=== PATIENT | male | born 1930 | race Caucasian/White ===

== ENCOUNTER 2019-07-26 16:31 | Inpatient (IN) ==
[2019-07-26 17:23] LABS: Basophils % 0.2 % (0.0-0.8); Eosinophils # 0.4 10*3/uL (0.0-0.87); Eosinophils % 2.9 % (0.00-10.9); Hemoglobin 6.9 GM/DL (14.0-18.0); Immature Granulocytes % 0.9 %; Immature Granulocytes Absolute 0.13 #; Lymphocytes # 3.3 10*3/uL (1.4-4.0); Mean Corpuscular Volume 97.9 FL (87-102); Mean Platelet Volume 13.1 FL (9.6-12.0); Monocytes % 11.2 % (1.7-12.7); Neutrophils % 62.8 % (38.7-73.9); Platelet Count 156 T/CUMM (130-400); Red Blood Count 2.35 MC/CUMM (3.8-5.5); Red Cell Distribution Width 22.6 % (9.3-17.3)
[2019-07-26] MEDS ORDERED: SODIUM CHLORIDE 0.9% 1,000 ML IV PRN (17:39)
[2019-07-26 17:45] LABS: Alanine Aminotransferase 15 U/L (16-61); Albumin 3.2 G/DL (3.4-5.0); Alkaline Phosphatase 123 U/L (45-117); Aspartate Amino Transferase 24 U/L (0-37); Bilirubin,Total < 0.39 MG/DL (0.2-1.0); Blood Urea Nitrogen 39 MG/DL (7-18); Calcium 9.9 MG/DL (8.5-10.1); Estimated Glom Filtration Rate 64 ML/MIN; Glucose 105 MG/DL (74-106); Osmolality,Calculated 294.8 MOS/KG (273-304); Total Protein 7.9 G/DL (6.4-8.3)
[2019-07-26 18:46] LABS: Apearance,Urine Slightly Hazy (Clear); Bacteria,Urine Occasional /HPF (Few); Bilirubin,Urine Negative (Negative); Blood, Urine Negative (Negative); Glucose,Urine (UA) Negative (Negative); Hyaline Casts,Urine 1 /LPF (0-3); Ketones,Urine Negative (Negative); Mucus,Urine Occasional /LPF (Occasional); Nitrite,Urine Positive (Negative); Protein,Urine 30 MG/DL; RBC,Urine 23 /HPF (0-4); Squamous Epithelial Cell,Urine Occasional /HPF (0-10); Urine Color Yellow (Yellow); Urine Specific Gravity 1.017 (1.001-1.035); Urine Urobilinogen < 2.0 EU/DL (0.2-1.0); WBC,Urine 214 /HPF (0-6)
[2019-07-26] MEDS ORDERED: ONDANSETRON 4 MG/2 ML VIAL IV PRN (18:47)
[2019-07-26] MEDS: ALBUTEROL/IPRATROPIUM 3 ML NEB RESP TX SCH (19:00)
[2019-07-26] MEDS ORDERED: cefTRIAXone 1,000 MG in SYRINGE 1 EACH IV SCH (20:00)
[2019-07-27] MEDS: ALBUTEROL/IPRATROPIUM 3 ML NEB RESP TX SCH ×4 (01:30→19:08)
[2019-07-27] MEDS: AZITHROMYCIN INJ 500 MG in SODIUM CHLORIDE 0.9% 250 ML IV SCH ×2 (04:00→22:55)
[2019-07-27] MEDS: SODIUM CHLORIDE 0.9% 1,000 ML IV SCH ×2 (04:00→16:02)
[2019-07-27 05:15] LABS: Basophils % 0.3 % (0.0-0.8); Eosinophils # 0.4 10*3/uL (0.0-0.87); Eosinophils % 2.9 % (0.00-10.9); Hematocrit 26.4 VOL% (42.0-52.0); Hemoglobin 8.2 GM/DL (14.0-18.0); Immature Granulocytes % 1.2 %; Immature Granulocytes Absolute 0.17 #; Lymphocytes # 2.6 10*3/uL (1.4-4.0); Lymphocytes % 18.5 % (21.2-54.2); Mean Corpuscular HGB Conc 31.1 GM/DL (32-36); Mean Corpuscular Volume 92.3 FL (87-102); Mean Platelet Volume 13.2 FL (9.6-12.0); Monocytes % 11.3 % (1.7-12.7); Neutrophils % 65.8 % (38.7-73.9); Platelet Count 121 T/CUMM (130-400); Red Blood Count 2.86 MC/CUMM (3.8-5.5); Red Cell Distribution Width 20.4 % (9.3-17.3); White Blood Count 14.2 T/CUMM (4-12)
[2019-07-27 05:47] LABS: Vitamin B12 > 2000 PG/ML (211-911)
[2019-07-27 05:51] LABS: % Iron Saturation 16.3 % (18-50); Ferritin 83.6 ng/ml (26-388)
[2019-07-27 05:55] LABS: Albumin 2.8 G/DL (3.4-5.0); Bilirubin,Total 0.7 MG/DL (0.2-1.0); Calcium 9.5 MG/DL (8.5-10.1); Osmolality,Calculated 302.3 MOS/KG (273-304); Risk Ratio 3.52; Thyroid Stimulating Hormone 11.7 uIU/ml (0.358-3.74); VLDL CHOLESTEROL 15.8 MG/DL
[2019-07-27] MEDS: PANTOPRAZOLE 40 MG VIAL IV SCH (08:45)
[2019-07-27] MEDS: LEVOTHYROXINE 88 MCG TABLET PO SCH (14:39)
[2019-07-27] MEDS: cefTRIAXone 2,000 MG in SYRINGE 1 EACH IV SCH (14:39)
[2019-07-27] MEDS: MIDODRINE 5 MG TABLET PO SCH ×2 (14:41→21:39)
[2019-07-27 15:01] LABS: Hematocrit 29.3 VOL% (42.0-52.0); Hemoglobin 9.2 GM/DL (14.0-18.0)
[2019-07-27] MEDS ORDERED: ACETAMINOPHEN 325 MG TABLET PO ONE (16:34)
[2019-07-27] MEDS: MEMANTINE 10 MG TABLET PO SCH (21:39)
[2019-07-28] MEDS: ALBUTEROL/IPRATROPIUM 3 ML NEB RESP TX SCH ×4 (00:52→19:19)
[2019-07-28 05:04] LABS: Albumin 2.5 G/DL (3.4-5.0); Bilirubin,Total 0.4 MG/DL (0.2-1.0); Calcium 8.5 MG/DL (8.5-10.1); Osmolality,Calculated 292.8 MOS/KG (273-304); Total Protein 6.3 G/DL (6.4-8.3)
[2019-07-28] MEDS: LEVOTHYROXINE 88 MCG TABLET PO SCH (08:06)
[2019-07-28] MEDS: MEMANTINE 10 MG TABLET PO SCH ×2 (08:06→22:05)
[2019-07-28] MEDS: PANTOPRAZOLE 40 MG VIAL IV SCH (08:06)
[2019-07-28] MEDS: MIDODRINE 5 MG TABLET PO SCH ×3 (08:06→22:05)
[2019-07-28] MEDS ORDERED: INFLUENZA VIRUS VACCINE 0.5 ML SYRINGE IM ONE (10:54)
[2019-07-28] MEDS: SODIUM CHLORIDE 0.9% 1,000 ML IV SCH (13:08)
[2019-07-28] MEDS: cefTRIAXone 2,000 MG in SYRINGE 1 EACH IV SCH (13:19)
[2019-07-28] MEDS: SODIUM CHLORIDE 0.45% 1,000 ML IV SCH (14:35)
[2019-07-28] MEDS: PIPERACILLIN/TAZOBACTAM 3,375 MG in SODIUM CHLORIDE 0.9% 100 ML IV SCH ×2 (14:42→23:47)
[2019-07-28] MEDS ORDERED: SODIUM CHLORIDE 0.9% 1,000 ML IV ONE (16:36)
[2019-07-28] MEDS: VANCOMYCIN INJ 1,000 MG in SODIUM CHLORIDE 0.9% 250 ML IV SCH (18:15)
[2019-07-28] MEDS ORDERED: SODIUM CHLORIDE 0.9% 500 ML IV ONE (18:54)
[2019-07-28 19:15] LABS: Hematocrit 28.4 VOL% (42.0-52.0); Hemoglobin 8.6 GM/DL (14.0-18.0)
[2019-07-28] MEDS ORDERED: AZITHROMYCIN 250 MG TABLET PO SCH (21:00)
[2019-07-29] MEDS: ALBUTEROL/IPRATROPIUM 3 ML NEB RESP TX SCH ×4 (00:52→19:34)
[2019-07-29] MEDS ORDERED: ACETAMINOPHEN 325 MG TABLET PO PRN (00:59)
[2019-07-29] MEDS: SODIUM CHLORIDE 0.45% 1,000 ML IV SCH (04:00)
[2019-07-29 05:58] LABS: Basophils % 0.3 % (0.0-0.8); Eosinophils # 0.2 10*3/uL (0.0-0.87); Eosinophils % 1.4 % (0.00-10.9); Hematocrit 29.2 VOL% (42.0-52.0); Hemoglobin 8.8 GM/DL (14.0-18.0); Immature Granulocytes % 1.6 %; Immature Granulocytes Absolute 0.23 #; Lymphocytes % 13.7 % (21.2-54.2); Mean Corpuscular HGB Conc 30.1 GM/DL (32-36); Mean Corpuscular Volume 96.4 FL (87-102); Mean Platelet Volume 13.3 FL (9.6-12.0); Monocytes % 12.2 % (1.7-12.7); NRBC # 0.03 10*3/uL; Neutrophils % 70.8 % (38.7-73.9); Red Blood Count 3.03 MC/CUMM (3.8-5.5); White Blood Count 14.4 T/CUMM (4-12)
[2019-07-29 06:00] LABS: Platelet Count 91 T/CUMM (130-400)
[2019-07-29 06:25] LABS: Calcium 8.1 MG/DL (8.5-10.1)
[2019-07-29] MEDS: PIPERACILLIN/TAZOBACTAM 3,375 MG in SODIUM CHLORIDE 0.9% 100 ML IV SCH ×3 (06:28→22:20)
[2019-07-29] MEDS: MEMANTINE 10 MG TABLET PO SCH ×2 (08:32→20:38)
[2019-07-29] MEDS: LEVOTHYROXINE 88 MCG TABLET PO SCH (08:32)
[2019-07-29] MEDS: MIDODRINE 5 MG TABLET PO SCH ×3 (08:32→20:38)
[2019-07-29] MEDS: PANTOPRAZOLE 40 MG VIAL IV SCH (08:32)
[2019-07-29] MEDS ORDERED: SODIUM CHLORIDE 0.9% 1,000 ML IV ONE (09:18)
[2019-07-29] MEDS: SODIUM CHLOR 0.9% KCL 20 MEQ 20 MEQ/1,000 ML BAG IV SCH (12:46)
[2019-07-29] MEDS: PHENYLEPHRINE DRIP 40 MG/250 ML PREMIX IV PRN (13:59)
[2019-07-29 15:49] LABS: Apearance,Urine Slightly Hazy (Clear); Bilirubin,Urine Negative (Negative); Blood, Urine Moderate mg/dL (Negative); Glucose,Urine (UA) Negative (Negative); Ketones,Urine Negative (Negative); Mucus,Urine Occasional /LPF (Occasional); Nitrite,Urine Negative (Negative); Protein,Urine Negative; RBC,Urine 3 /HPF (0-4); Urine Color Yellow (Yellow); Urine Specific Gravity 1.006 (1.001-1.035); Urine Urobilinogen < 2.0 EU/DL (0.2-1.0); WBC,Urine 51 /HPF (0-6)
[2019-07-29] MEDS ORDERED: COSYNTROPIN 0.25 MG VIAL IV ONE (18:28)
[2019-07-29] MEDS: VANCOMYCIN INJ 1,000 MG in SODIUM CHLORIDE 0.9% 250 ML IV SCH (19:45)
[2019-07-30] MEDS: ALBUTEROL/IPRATROPIUM 3 ML NEB RESP TX SCH ×4 (01:50→19:37)
[2019-07-30] MEDS: SODIUM CHLOR 0.9% KCL 20 MEQ 20 MEQ/1,000 ML BAG IV SCH ×3 (05:08→15:10)
[2019-07-30] MEDS: PIPERACILLIN/TAZOBACTAM 3,375 MG in SODIUM CHLORIDE 0.9% 100 ML IV SCH ×3 (06:10→23:32)
[2019-07-30] MEDS ORDERED: COSYNTROPIN 0.25 MG VIAL IV ONE (08:00)
[2019-07-30] MEDS: PANTOPRAZOLE 40 MG VIAL IV SCH (08:40)
[2019-07-30] MEDS: MEMANTINE 10 MG TABLET PO SCH ×2 (08:42→21:10)
[2019-07-30] MEDS: MIDODRINE 5 MG TABLET PO SCH ×3 (08:42→21:10)
[2019-07-30] MEDS: LEVOTHYROXINE 88 MCG TABLET PO SCH (08:43)
[2019-07-30] MEDS: SODIUM CHLORIDE 0.45% 1,000 ML IV SCH ×2 (08:57→21:11)
[2019-07-30] MEDS: VANCOMYCIN INJ 1,000 MG in SODIUM CHLORIDE 0.9% 250 ML IV SCH (21:10)
[2019-07-30] MEDS ORDERED: VANCOMYCIN INJ 1,000 MG in SODIUM CHLORIDE 0.9% 250 ML IV SCH (22:00)
[2019-07-31] MEDS: PHENYLEPHRINE DRIP 40 MG/250 ML PREMIX IV PRN
[2019-07-31] MEDS: SODIUM CHLOR 0.9% KCL 20 MEQ 20 MEQ/1,000 ML BAG IV SCH ×6 (01:00→18:31)
[2019-07-31] MEDS: ALBUTEROL/IPRATROPIUM 3 ML NEB RESP TX SCH ×4 (01:01→19:27)
[2019-07-31 05:40] LABS: Calcium 7.8 MG/DL (8.5-10.1); Osmolality,Calculated 283.3 MOS/KG (273-304)
[2019-07-31] MEDS: PIPERACILLIN/TAZOBACTAM 3,375 MG in SODIUM CHLORIDE 0.9% 100 ML IV SCH ×3 (06:08→22:51)
[2019-07-31] MEDS: LEVOTHYROXINE 88 MCG TABLET PO SCH (09:58)
[2019-07-31] MEDS: MEMANTINE 10 MG TABLET PO SCH ×2 (09:58→21:04)
[2019-07-31] MEDS: MIDODRINE 5 MG TABLET PO SCH ×3 (09:58→21:04)
[2019-07-31] MEDS: PANTOPRAZOLE 40 MG VIAL IV SCH (10:02)
[2019-07-31] MEDS: SODIUM CHLORIDE 0.45% 1,000 ML IV SCH (11:13)
[2019-07-31] MEDS: VANCOMYCIN INJ 1,000 MG in SODIUM CHLORIDE 0.9% 250 ML IV SCH (17:00)
[2019-08-01] MEDS: ALBUTEROL/IPRATROPIUM 3 ML NEB RESP TX SCH ×4 (00:54→19:21)
[2019-08-01] MEDS: SODIUM CHLOR 0.9% KCL 20 MEQ 20 MEQ/1,000 ML BAG IV SCH ×4 (02:13→10:06)
[2019-08-01 04:33] LABS: Basophils % 0.5 % (0.0-0.8); Eosinophils # 0.5 10*3/uL (0.0-0.87); Eosinophils % 5.3 % (0.00-10.9); Hematocrit 27.9 VOL% (42.0-52.0); Hemoglobin 8.4 GM/DL (14.0-18.0); Immature Granulocytes Absolute 0.35 #; Lymphocytes # 1.7 10*3/uL (1.4-4.0); Lymphocytes % 19.1 % (21.2-54.2); Mean Corpuscular HGB Conc 30.1 GM/DL (32-36); Mean Corpuscular Volume 98.6 FL (87-102); Mean Platelet Volume 13.1 FL (9.6-12.0); Monocytes % 10.7 % (1.7-12.7); Neutrophils % 60.4 % (38.7-73.9); Red Blood Count 2.83 MC/CUMM (3.8-5.5); Red Cell Distribution Width 19.7 % (9.3-17.3); White Blood Count 8.8 T/CUMM (4-12)
[2019-08-01 04:34] LABS: Platelet Count 66 T/CUMM (130-400)
[2019-08-01 04:46] LABS: Calcium 7.6 MG/DL (8.5-10.1)
[2019-08-01 04:58] LABS: Eosinophils 2 % (0-10); Lymphocytes 22 % (20-55); Platelet Estimate Decreased; Segmented Neutrophils 68 % (50-85); Total Cells Counted 100
[2019-08-01 04:59] LABS: Burr Cells Slight; Hypochromasia 1+; Ovalocytes Slight
[2019-08-01] MEDS: PIPERACILLIN/TAZOBACTAM 3,375 MG in SODIUM CHLORIDE 0.9% 100 ML IV SCH ×3 (06:36→23:09)
[2019-08-01] MEDS: PANTOPRAZOLE 40 MG VIAL IV SCH (08:18)
[2019-08-01] MEDS: MIDODRINE 5 MG TABLET PO SCH ×3 (08:18→20:51)
[2019-08-01] MEDS: LEVOTHYROXINE 88 MCG TABLET PO SCH (08:19)
[2019-08-01] MEDS: MEMANTINE 10 MG TABLET PO SCH ×2 (08:37→20:51)
[2019-08-01] MEDS: VANCOMYCIN INJ 1,000 MG in SODIUM CHLORIDE 0.9% 250 ML IV SCH (09:30)
[2019-08-01] MEDS ORDERED: MAGNESIUM HYDROXIDE SUSP 30 ML UDCUP PO PRN (15:25)
[2019-08-01] MEDS: AMIODARONE 200 MG TABLET PO SCH (16:54)
[2019-08-01] MEDS: NYSTATIN CREAM 15 GM TUBE TOP SCH (20:51)
[2019-08-01] MEDS: DONEPEZIL 5 MG TABLET PO SCH (20:51)
[2019-08-01] MEDS ORDERED: POLYSACCHARIDE IRON COMPLEX PO SCH (21:00)
[2019-08-02] MEDS: ALBUTEROL/IPRATROPIUM 3 ML NEB RESP TX SCH ×4 (01:45→19:11)
[2019-08-02] MEDS: VANCOMYCIN INJ 1,000 MG in SODIUM CHLORIDE 0.9% 250 ML IV SCH (03:24)
[2019-08-02 05:40] LABS: Basophils % 0.4 % (0.0-0.8); Eosinophils # 0.4 10*3/uL (0.0-0.87); Eosinophils % 4.6 % (0.00-10.9); Hematocrit 29.1 VOL% (42.0-52.0); Hemoglobin 8.7 GM/DL (14.0-18.0); Immature Granulocytes % 1.8 %; Immature Granulocytes Absolute 0.17 #; Lymphocytes # 1.9 10*3/uL (1.4-4.0); Lymphocytes % 19.9 % (21.2-54.2); Mean Corpuscular HGB Conc 29.9 GM/DL (32-36); Mean Corpuscular Volume 97.7 FL (87-102); Monocytes % 8.6 % (1.7-12.7); Neutrophils % 64.7 % (38.7-73.9); Platelet Count 57 T/CUMM (130-400); Red Blood Count 2.98 MC/CUMM (3.8-5.5); Red Cell Distribution Width 19.4 % (9.3-17.3); White Blood Count 9.5 T/CUMM (4-12)
[2019-08-02 06:00] LABS: Calcium 7.9 MG/DL (8.5-10.1); Osmolality,Calculated 280.1 MOS/KG (273-304)
[2019-08-02 06:02] LABS: Hypochromasia 1+; Ovalocytes Slight; Platelet Estimate Decreased
[2019-08-02] MEDS: PIPERACILLIN/TAZOBACTAM 3,375 MG in SODIUM CHLORIDE 0.9% 100 ML IV SCH ×3 (06:16→23:15)
[2019-08-02] MEDS: NYSTATIN CREAM 15 GM TUBE TOP SCH ×3 (09:22→20:30)
[2019-08-02] MEDS: MEMANTINE 10 MG TABLET PO SCH ×2 (09:23→20:29)
[2019-08-02] MEDS: MIDODRINE 5 MG TABLET PO SCH ×3 (09:23→20:29)
[2019-08-02] MEDS: LEVOTHYROXINE 88 MCG TABLET PO SCH (09:23)
[2019-08-02] MEDS: DOCUSATE SODIUM 100 MG CAPSULE PO SCH (09:23)
[2019-08-02] MEDS: PANTOPRAZOLE 40 MG VIAL IV SCH (09:23)
[2019-08-02] MEDS: ASCORBIC ACID 500 MG TABLET PO SCH (09:23)
[2019-08-02] MEDS: ASPIRIN CHEW 81 MG TABLET PO SCH (09:24)
[2019-08-02] MEDS: MULTIVITAMIN (CENTRUM) TABLET PO SCH (09:24)
[2019-08-02] MEDS: DONEPEZIL 5 MG TABLET PO SCH (20:29)
[2019-08-03] MEDS: ALBUTEROL/IPRATROPIUM 3 ML NEB RESP TX SCH ×4 (00:26→19:40)
[2019-08-03 05:58] LABS: Basophils % 0.2 % (0.0-0.8); Eosinophils # 0.5 10*3/uL (0.0-0.87); Hematocrit 27.8 VOL% (42.0-52.0); Hemoglobin 8.6 GM/DL (14.0-18.0); Immature Granulocytes % 1.2 %; Lymphocytes # 1.9 10*3/uL (1.4-4.0); Lymphocytes % 23.7 % (21.2-54.2); Mean Corpuscular HGB Conc 30.9 GM/DL (32-36); Mean Corpuscular Volume 95.5 FL (87-102); Mean Platelet Volume 13.3 FL (9.6-12.0); Neutrophils % 58.9 % (38.7-73.9); Platelet Count 69 T/CUMM (130-400); Red Blood Count 2.91 MC/CUMM (3.8-5.5); Red Cell Distribution Width 19.1 % (9.3-17.3); White Blood Count 8.2 T/CUMM (4-12)
[2019-08-03 06:14] LABS: Calcium 8.4 MG/DL (8.5-10.1); Osmolality,Calculated 284.7 MOS/KG (273-304)
[2019-08-03 06:27] LABS: Anisocytosis 1+; Hypochromasia 1+; Macrocytosis 1+; Target Cells Slight
[2019-08-03] MEDS: PIPERACILLIN/TAZOBACTAM 3,375 MG in SODIUM CHLORIDE 0.9% 100 ML IV SCH ×3 (06:27→23:12)
[2019-08-03 06:28] LABS: Platelet Estimate Decreased
[2019-08-03] MEDS: ASCORBIC ACID 500 MG TABLET PO SCH (08:46)
[2019-08-03] MEDS: DOCUSATE SODIUM 100 MG CAPSULE PO SCH (08:46)
[2019-08-03] MEDS: LEVOTHYROXINE 88 MCG TABLET PO SCH (08:46)
[2019-08-03] MEDS: MULTIVITAMIN (CENTRUM) TABLET PO SCH (08:46)
[2019-08-03] MEDS: MIDODRINE 5 MG TABLET PO SCH ×3 (08:47→21:55)
[2019-08-03] MEDS: guaiFENesin/DM ER 600-30 MG TABLET PO PRN ×2 (08:47→21:55)
[2019-08-03] MEDS: MEMANTINE 10 MG TABLET PO SCH ×2 (08:47→21:56)
[2019-08-03] MEDS: ASPIRIN CHEW 81 MG TABLET PO SCH (08:47)
[2019-08-03] MEDS: PANTOPRAZOLE 40 MG VIAL IV SCH (08:48)
[2019-08-03] MEDS ORDERED: MAGNESIUM SULF RIDER 4 GM in PREMIX 1 EACH IV ONE (09:00)
[2019-08-03] MEDS ORDERED: POTASSIUM CHLORIDE 20 MEQ PACK PO ONE (09:00)
[2019-08-03] MEDS: NYSTATIN CREAM 15 GM TUBE TOP SCH ×2 (10:12→21:58)
[2019-08-03] MEDS: AMIODARONE 200 MG TABLET PO SCH (15:29)
[2019-08-03] MEDS: DONEPEZIL 5 MG TABLET PO SCH (21:56)
[2019-08-04] MEDS: ALBUTEROL/IPRATROPIUM 3 ML NEB RESP TX SCH ×4 (01:00→19:47)
[2019-08-04] MEDS: MIDODRINE 5 MG TABLET PO SCH ×3 (08:29→22:04)
[2019-08-04] MEDS: ASCORBIC ACID 500 MG TABLET PO SCH (08:29)
[2019-08-04] MEDS: MEMANTINE 10 MG TABLET PO SCH ×2 (08:30→22:05)
[2019-08-04] MEDS: PIPERACILLIN/TAZOBACTAM 3,375 MG in SODIUM CHLORIDE 0.9% 100 ML IV SCH ×2 (08:30→16:06)
[2019-08-04] MEDS: DOCUSATE SODIUM 100 MG CAPSULE PO SCH (08:30)
[2019-08-04] MEDS: guaiFENesin/DM ER 600-30 MG TABLET PO PRN ×2 (08:30→22:05)
[2019-08-04] MEDS: MULTIVITAMIN (CENTRUM) TABLET PO SCH (08:30)
[2019-08-04] MEDS: LEVOTHYROXINE 88 MCG TABLET PO SCH (08:30)
[2019-08-04] MEDS: ASPIRIN CHEW 81 MG TABLET PO SCH (08:30)
[2019-08-04] MEDS: PANTOPRAZOLE 40 MG TABLET PO SCH (08:30)
[2019-08-04] MEDS: NYSTATIN CREAM 15 GM TUBE TOP SCH ×2 (08:31→22:05)
[2019-08-04] MEDS ORDERED: POTASSIUM CHLORIDE 20 MEQ PACK PO ONE (11:08)
[2019-08-04] MEDS ORDERED: MAGNESIUM SULF RIDER 4 GM in PREMIX 1 EACH IV ONE (11:08)
[2019-08-04] MEDS: DONEPEZIL 5 MG TABLET PO SCH (22:05)
[2019-08-05] MEDS: ALBUTEROL/IPRATROPIUM 3 ML NEB RESP TX SCH ×2 (01:32→07:11)
[2019-08-05] MEDS: PIPERACILLIN/TAZOBACTAM 3,375 MG in SODIUM CHLORIDE 0.9% 100 ML IV SCH (01:47)
[2019-08-05 05:54] LABS: Basophils % 0.3 % (0.0-0.8); Eosinophils # 0.7 10*3/uL (0.0-0.87); Eosinophils % 6.6 % (0.00-10.9); Hematocrit 27.7 VOL% (42.0-52.0); Hemoglobin 8.5 GM/DL (14.0-18.0); Immature Granulocytes % 0.7 %; Immature Granulocytes Absolute 0.07 #; Lymphocytes # 2.5 10*3/uL (1.4-4.0); Lymphocytes % 24.9 % (21.2-54.2); Mean Corpuscular HGB Conc 30.7 GM/DL (32-36); Mean Corpuscular Volume 93.9 FL (87-102); Mean Platelet Volume 13.3 FL (9.6-12.0); Monocytes % 11.1 % (1.7-12.7); Neutrophils % 56.4 % (38.7-73.9); Platelet Count 66 T/CUMM (130-400); Red Blood Count 2.95 MC/CUMM (3.8-5.5); Red Cell Distribution Width 18.5 % (9.3-17.3); White Blood Count 9.9 T/CUMM (4-12)
[2019-08-05 06:07] LABS: Osmolality,Calculated 273.5 MOS/KG (273-304)
[2019-08-05 06:30] LABS: Hypochromasia 1+; Microcytosis 1+; Ovalocytes Slight
[2019-08-05 06:31] LABS: Platelet Estimate Decreased
[2019-08-05] MEDS: MIDODRINE 5 MG TABLET PO SCH (09:30)
[2019-08-05] MEDS: LEVOTHYROXINE 88 MCG TABLET PO SCH (09:30)
[2019-08-05] MEDS: ASCORBIC ACID 500 MG TABLET PO SCH (09:30)
[2019-08-05] MEDS: MEMANTINE 10 MG TABLET PO SCH (09:30)
[2019-08-05] MEDS: ASPIRIN CHEW 81 MG TABLET PO SCH (09:31)
[2019-08-05] MEDS: NYSTATIN CREAM 15 GM TUBE TOP SCH (09:31)
[2019-08-05] MEDS: PANTOPRAZOLE 40 MG TABLET PO SCH (09:31)
[2019-08-05] MEDS: DOCUSATE SODIUM 100 MG CAPSULE PO SCH (09:31)
[2019-08-05] MEDS: MULTIVITAMIN (CENTRUM) TABLET PO SCH (09:51)
[2019-08-05 12:10] VITALS: BP 92/46
== END 2019-08-05 12:36 | disposition home or self-care (01) ==
LOC: N.ED 16:31 → SUATTDRO 18:47 → N.EDINP 18:47 → N.3E 20:20 → N.ICU 07-29 11:50 → N.2E 08-01 15:23
PROVIDERS: ADMIT Internal Medicine Nephrology; ATTEND Internal Medicine